=== PATIENT | female | born 1985 | race Two or more races ===

== ENCOUNTER 2024-01-04 04:44 | Emergency (ER) | payer MEDICAID, OTHER ==
[~2024-01-04] VITALS: Ht 152.4 cm; Wt 83.7 kg
[2024-01-04 07:33] VITALS: BP 106/66; PULSE 85; RESP 19; TEMP 98.2; O2SAT 98
== END 2024-01-04 06:37 | disposition left against medical advice (07) ==
LOC: ER 04:44
DX: N64.4 Mastodynia (principal); Z53.21 Procedure and treatment not carried out due to patient leaving prior to being seen by health care provider